=== PATIENT | male | born 1985 | race Caucasian/White ===

== ENCOUNTER 2016-09-10 20:18 | Emergency (ER) | payer BC ==
[2016-09-10 20:32] VITALS: BP 144/98; PULSE 99
[2016-09-10 20:35] VITALS: RESP 16
[2016-09-10] MEDS ORDERED: Sodium Chloride 0.9% 1,000 ML IV STA (20:38)
[2016-09-10] MEDS ORDERED: DiphenhydrAMINE 50 mg/ml Inj IVP STA (20:38)
--- NOTE | 2016-09-10 20:47 | ED PDOC ---
Arrival/HPI - General Chief Complaint: Allergic Reaction Time Seen by Provider: 09/10/16 20:28 - History of Present Illness Narrative History of Present Illness (Text): 09/10/16 20:44 30 yo male, no prior hx, presents with sore throat. pt was empirically started on tamiflu on thursday by his pmd. pt reports that he believe he may be having allergic reaction to tamiflu, as he feels like "his throat is closing". no fevers, n/v/d, or other complaints Past Medical History - Provider Review Nursing Documentation Reviewed: Yes - Psychiatric Hx Substance Use: No Family/Social History - Physician Review Nursing Documentation Reviewed: Yes Family/Social History: Unknown Family HX Smoking Status: Never Smoked Hx Alcohol Use: Yes Frequency of alcohol use: Socially Hx Substance Use: No Allergies/Home Meds Allergies/Adverse Reactions: Allergies Penicillins Allergy (Verified 09/10/16 20:28) ANAPHYLAXIS Review of Systems - Review of Systems Constitutional: Normal Eyes: Normal ENT: Sore Throat Respiratory: Normal Cardiovascular: Normal Gastrointestinal: Normal Genitourinary Male: Normal Musculoskeletal: Normal Skin: Normal Neurological: Normal Endocrine: Normal Hemo/Lymphatic: Normal Psychiatric: Normal Physical Exam Vital Signs Temp Pulse Resp BP Pulse Ox 09/10/16 23:58 98.0 F 99 H 16 98 09/10/16 20:34 97.9 F 99 H 16 144/98 H 95 09/10/16 20:28 97.9 F 99 H 17 144/98 H 95 Temperature: Afebrile Blood Pressure: Normal Pulse: Regular Respiratory Rate: Normal Appearance: Positive for: Well-Appearing, Non-Toxic, Comfortable, Other ( speaking full sentences) Pain Distress: None Mental Status: Positive for: Alert and Oriented X 3 - Systems Exam Head: Present: Atraumatic, Normocephalic Pupils: Present: PERRL Extroacular Muscles: Present: EOMI Conjunctiva: Present: Normal Mouth: Present: Moist Mucous Membranes Pharnyx: Present: ERYTHEMA, EXUDATE, TONSILS ENLARGED Neck: Present: Normal Range of Motion Respiratory/Chest: Present: Clear to Auscultation, Good Air Exchange. No: Respiratory Distress, Accessory Muscle Use Cardiovascular: Present: Regular Rate and Rhythm, Normal S1, S2. No: Murmurs Abdomen: Present: Normal Bowel Sounds. No: Tenderness, Distention, Peritoneal Signs Back: Present: Normal Inspection Upper Extremity: Present: Normal Inspection. No: Cyanosis, Edema Lower Extremity: Present: Normal Inspection. No: Edema Neurological: Present: GCS=15, CN II-XII Intact, Speech Normal Skin: Present: Warm, Dry, Normal Color. 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 will treat with bendryl and decadron, obtain blood work, ct and reassess. lungs clear. 1000: pt reassessed: reports improving symptoms . ct pending. 09/10/16 22:51 pt reassesed. now states feeling "much better" s/p decadron. ct pending. - Lab Interpretations Lab Results: 09/10/16 20:37 09/10/16 20:37 Lab Results 09/10/16 20:37: WBC 14.7 H, RBC 5.02, Hgb 14.4, Hct 41.7 L, MCV 83.1, MCH 28.7, MCHC 34.5, RDW 12.6, Plt Count 293, MPV 8.7, Gran % 65.5, Lymph % (Auto) 23.4, [place] % (Auto) 9.7 H, Eos % (Auto) 1.1 L, Baso % (Auto) 0.3, Gran # 9.61 H, Lymph # 3.4, [place] # 1.4 H, Eos # 0.2, Baso # 0.05, Sodium 141, Potassium 4.1, Chloride 100, Carbon Dioxide 29, Anion Gap 16, BUN 12, Creatinine 0.9, Est GFR ( Amer) > 60, Est GFR (Non-Af Amer) > 60, Random Glucose 102, Calcium 9.6 , Total Bilirubin 1.1, AST 32, ALT 37, Alkaline Phosphatase 58, Total Protein 8.1, Albumin 4.5, Globulin 3.6, Albumin/Globulin Ratio 1.3, Influenza Typ A,B ( EIA) Negative for flu a/b, Grp A Beta Strep Ag Negative - RAD Interpretation Radiology Orders: 09/10/16 21:25 NECK SOFT TISSUE W/CONTRAST [CT] Stat - Medication Orders Current Medication Orders: Discontinued Medications Dexamethasone (Decadron Inj) 10 mg IVP STAT STA Stop: 09/10/16 20:38 Last Admin: 09/10/16 21:00 Dose: 10 MG IVP Administration Document 09/10/16 21:00 [email or web address] (Rec: 09/10/16 21:[address] ATTEND) Charges for Administration # of IVP Administrations 1 Diphenhydramine HCl (Benadryl) 50 mg IVP STAT STA Stop: 09/10/16 20:39 Last Admin: 09/10/16 21:01 Dose: 50 MG IVP Administration Document 09/10/16 21:01 [email or web address] (Rec: 09/10/16 21:[address] ATTEND) Charges for Administration # of IVP Administrations 1 Sodium Chloride (Sodium Chloride 0.9%) 1,000 mls @ 999 mls/hr IV .Q1H1M STA Stop: 09/10/16 21:38 Last Admin: 09/10/16 21:01 Dose: 999 MLS/HR eMAR Start Stop Document 09/10/16 21:01 [email or web address] (Rec: 09/10/16 21:[address]- ATTEND) Intravenous Solution Start Date 09/10/16 Start Time 21:01 End Date 09/10/16 Clindamycin Phosphate 300 mg/ (Sodium Chloride) 52 mls @ 104 mls/hr IVPB STAT STA PRN Reason: Protocol Stop: 09/10/16 23:35 Last Admin: 09/10/16 23:38 Dose: 104 MLS/HR eMAR Start Stop Document 09/10/16 23:38 [facility] (Rec: 09/10/16 23:[address]- ATTEND) Intravenous Solution Start Date 09/10/16 Start Time 23:48 End Date 09/10/16 Iohexol (Omnipaque 350 100 Ml) Confirm Administered Dose 350 mg .ROUTE .STK-MED ONE Stop: 09/10/16 22:38 Disposition/Present on Arrival - Present on Arrival Any Indicators Present on Arrival: No History of DVT/PE: No History of Uncontrolled Diabetes: No Urinary Catheter: No History of Decub. Ulcer: No History Surgical Site Infection Following: None - Disposition Have Diagnosis and Disposition been Completed?: Yes Diagnosis: Pharyngitis Disposition: HOME/ ROUTINE Disposition Time: 11:00 Condition: STABLE Additional Instructions: Stop the tamiflu. Tylenol for pain or fever. Drink plenty of fluids. Continue benadryl every 6 hours and take the clindamycin as prescribed. Follow up with your primary care doctor. Prescriptions: Clindamycin [Cleocin] 1 cap PO TID #30 cap Referrals: Nolan Johnson MD [Primary Care Provider] - Follow up with primary Forms: WORK NOTE
[2016-09-10 21:09] LABS: ADD MANUAL DIFF? NO; BASO # 0.05 K/mm3 (0.0-2.0); BASO % 0.3 % (0.0-3.0); EOS # 0.2 (0.0-0.7); EOS % 1.1 % (1.5-5.0); GRAN # 9.61 (1.4-6.5); GRAN % 65.5 % (50.0-68.0); HEMATOCRIT 41.7 % (42.0-52.0); LYMPH # 3.4 (1.2-3.4); LYMPH % 23.4 % (22.0-35.0); MEAN CELL VOLUME 83.1 fL (80.0-105.0); MEAN CORPUSCULAR HEMOGLOBIN 28.7 pg (25.0-35.0); MEAN CORPUSCULAR HGB CONC 34.5 g/dl (31.0-37.0); MEAN PLATELET VOLUME 8.7 fl (7.0-11.0); MONO # 1.4 (0.1-0.6); MONO % 9.7 % (1.0-6.0); PLATELET COUNT 293 10^3/uL (120.0-450.0); RED CELL DISTRIBUTION WIDTH 12.6 % (11.5-14.5); WHITE BLOOD COUNT 14.7 10^3/ul (4.5-11.0)
[2016-09-10 21:31] LABS: ALB/GLOB RATIO 1.3 (1.1-1.8); ALKALINE PHOSPHATASE 58 U/L (38-133); ALT/SGPT 37 U/L (7-56); AST/SGOT 32 U/L (15-59); BILIRUBIN,TOTAL 1.1 mg/dL (0.2-1.3); BLOOD UREA NITROGEN 12 mg/dL (7-21); CALCIUM 9.6 mg/dL (8.4-10.5); CARBON DIOXIDE 29 mmol/L (21-33); CHLORIDE 100 mmol/L (98-107); GFR AFRICAN-AMERICAN > 60; GLUCOSE,RANDOM 102 mg/dL (70-110); POTASSIUM 4.1 mmol/L (3.6-5.0); SODIUM 141 mmol/L (132-148); TOTAL PROTEIN 8.1 g/dL (5.8-8.3)
[2016-09-10] MEDS ORDERED: Iohexol 350 MG/100 ML VIAL ONE (22:37)
[2016-09-10] MEDS ORDERED: Clindamycin 300 MG in Sodium Chloride 0.9% 50 ML IVPB STA (23:06)
--- NOTE | 2016-09-10 23:22 | ED PDOC ---
Physical Exam Vital Signs Reviewed: Yes Vital Signs Temp Pulse Resp BP Pulse Ox 09/10/16 20:34 97.9 F 99 H 16 144/98 H 95 09/10/16 20:28 97.9 F 99 H 17 144/98 H 95 Temperature: Afebrile Blood Pressure: Normal Pulse: Regular Respiratory Rate: Normal Appearance: Positive for: Well-Appearing, Non-Toxic, Comfortable Pain Distress: None Mental Status: Positive for: Alert and Oriented X 3 Medical Decision Making ED Course and Treatment: 09/10/16 23:00 Case endorsed to me by Dr. Singh, pending CT scan and final disposition. 09/10/16 23:24 CT Neck Soft Tissues shows: Dictated and Authenticated by: Shantanu Mccurdy MD Nasopharynx: Unremarkable. Oropharynx: [place] tonsils are mildly prominent in size concerning for tonsillitis. No peritonsillar abscess. Hypopharynx: Unremarkable. Larynx: Unremarkable. Normal epiglottis. Trachea: Unremarkable. Retropharyngeal space: Unremarkable. Submandibular/parotid glands: Unremarkable. Glands are normal in size. Thyroid: Unremarkable. No enlarged or calcified nodules. Bones/joints: No acute fracture. Soft tissues: Unremarkable. Vasculature: No acute findings. Lymph nodes: Anterior cervical chain lymph nodes some of which are mildly prominent in size and are likely reactive. Sinuses: Mucosal thickening paranasal sinuses. Lung apices: Unremarkable as visualized. IMPRESSION: 1. [place] tonsils are mildly prominent in size concerning for tonsillitis. No peritonsillar abscess. 2. Anterior cervical chain lymph nodes some of which are mildly prominent in size and are likely reactive. 09/10/16 23:27 Patient is feeling much better after meds; labs with leukocytosis. CT with no abscess. Given decadron already - will d/c on benadryl and clinda and have him f/u pmd. He has been instructed to d/c benadryl. - Lab Interpretations Lab Results: 09/10/16 20:37 09/10/16 20:37 Lab Results 09/10/16 20:37: WBC 14.7 H, RBC 5.02, Hgb 14.4, Hct 41.7 L, MCV 83.1, MCH 28.7, MCHC 34.5, RDW 12.6, Plt Count 293, MPV 8.7, Gran % 65.5, Lymph % (Auto) 23.4, [place] % (Auto) 9.7 H, Eos % (Auto) 1.1 L, Baso % (Auto) 0.3, Gran # 9.61 H, Lymph # 3.4, [place] # 1.4 H, Eos # 0.2, Baso # 0.05, Sodium 141, Potassium 4.1, Chloride 100, Carbon Dioxide 29, Anion Gap 16, BUN 12, Creatinine 0.9, Est GFR ( Amer) > 60, Est GFR (Non-Af Amer) > 60, Random Glucose 102, Calcium 9.6 , Total Bilirubin 1.1, AST 32, ALT 37, Alkaline Phosphatase 58, Total Protein 8.1, Albumin 4.5, Globulin 3.6, Albumin/Globulin Ratio 1.3, Influenza Typ A,B ( EIA) Negative for flu a/b, Grp A Beta Strep Ag Negative - RAD Interpretation Radiology Orders: 09/10/16 21:25 NECK SOFT TISSUE W/CONTRAST [CT] Stat - Medication Orders Current Medication Orders: Clindamycin Phosphate 300 mg/ (Sodium Chloride) 52 mls @ 104 mls/hr IVPB STAT STA PRN Reason: Protocol Stop: 09/10/16 23:35 Discontinued Medications Dexamethasone (Decadron Inj) 10 mg IVP STAT STA Stop: 09/10/16 20:38 Last Admin: 09/10/16 21:00 Dose: 10 MG IVP Administration Document 09/10/16 21:00 [facility] (Rec: 09/10/16 21:00 [place] [id number] ATTEND) Charges for Administration # of IVP Administrations 1 Diphenhydramine HCl (Benadryl) 50 mg IVP STAT STA Stop: 09/10/16 20:39 Last Admin: 09/10/16 21:01 Dose: 50 MG IVP Administration Document 09/10/16 21:01 [email or web address] (Rec: 09/10/16 21:01 [place] [id number]- ATTEND) Charges for Administration # of IVP Administrations 1 Sodium Chloride (Sodium Chloride 0.9%) 1,000 mls @ 999 mls/hr IV .Q1H1M STA Stop: 09/10/16 21:38 Last Admin: 09/10/16 21:01 Dose: 999 MLS/HR eMAR Start Stop Document 09/10/16 21:01 [facility] (Rec: 09/10/16 21:01 [email or web address] [id number] ATTEND) Intravenous Solution Start Date 09/10/16 Start Time 21:01 End Date 09/10/16 Iohexol (Omnipaque 350 100 Ml) Confirm Administered Dose 350 mg .ROUTE .STK-MED ONE Stop: 09/10/16 22:38 Disposition/Present on Arrival - Present on Arrival Any Indicators Present on Arrival: No History of DVT/PE: No History of Uncontrolled Diabetes: No Urinary Catheter: No History of Decub. Ulcer: No History Surgical Site Infection Following: None - Disposition Have Diagnosis and Disposition been Completed?: Yes Diagnosis: Pharyngitis Disposition: HOME/ ROUTINE Disposition Time: 23:30 Patient Plan: Discharge Patient Problems: Current Active Problems Problem Status Diagnosed Pharyngitis Acute Condition: GOOD Additional Instructions: Stop the tamiflu. Tylenol for pain or fever. Drink plenty of fluids. Continue benadryl every 6 hours and take the clindamycin as prescribed. Follow up with your primary care doctor. Prescriptions: Clindamycin [Cleocin] 1 cap PO TID #30 cap Forms: WORK NOTE
[2016-09-10 23:58] VITALS: TEMP 98; O2SAT 98
--- NOTE | 2016-09-11 08:52 | CT ---
PROCEDURE: CT NECK WITH CONTRAST HISTORY: sore throat r/o abscess COMPARISON: None TECHNIQUE: CT of the neck with intravenous contrast. Coronal and sagittal reformats generated. Intravenous contrast dose: 95 cc Omnipaque 350 Radiation dose: DLP 466.49 mGy-cm This CT exam was performed using one or more of the following dose reduction techniques: Automated exposure control, adjustment of the mA and/or kV according to patient size, and/or use of iterative reconstruction technique. FINDINGS: NASOPHARYNX: Unremarkable. SUPRAHYOID NECK: Tonsillar hypertrophy bilaterally, somewhat asymmetric right more than left. No evidence of tonsillar or peritonsillar abscess. No prevertebral soft tissue abnormalities identified. INFRAHYOID NECK: Unremarkable larynx, hypopharynx, and supraglottic space. Vocal cords intact. MASS: None. GLANDS: Parotid and submandibular glands unremarkable. Normal size thyroid gland, without nodule. LYMPH NODES: Mild enlarged level 2A, level IIb lymph nodes likely reactive. None larger than 1 cm. CERVICAL SPINE: No fracture or focal lesion. VASCULAR STRUCTURES: Unremarkable. OTHER FINDINGS: None. IMPRESSION: Presumed inflammatory changes accounting for palate seen tonsil enlargement bilaterally without tonsillar, peritonsillar abscess. Reactive lymphadenopathy. Concordant results (preliminary interpretation) provided by [facility]. Procedure Completed: 22:47. Preliminary ([facility]) Report: Dictated and Authenticated: 23:20. Final Interpretation: 08:50. September 11, 2016.
== END 2016-09-10 23:59 | disposition home or self-care (01) ==
LOC: ED 20:18 → MERGE 20:18 → ED 23:59
DX: J02.9 Acute pharyngitis, unspecified (principal)
CPT/HCPCS: 70491; 80053; 85025; 87070; 87430; 87804; 96374; 96375; 99283; J1100; J1200; J7040; Q9967